=== PATIENT | female | born 1985 | race Caucasian/White ===

== ENCOUNTER 2016-07-24 06:17 | Inpatient (IN) | payer OTHER ==
[2016-07-24] MEDS ORDERED: Acetaminophen TAB* 325 MG PO ONE ×2 (06:39→12:52)
[2016-07-24] MEDS ORDERED: Oxytocin in LR* 20 UNITS/1,000 ML BAG IVPB SCH ×2 (07:00→16:12)
[2016-07-24 08:02] LABS: Hematocrit 32 % (35-47); Hemoglobin 10.8 g/dl (12.0-16.0); Mean Corpuscular HGB Conc 34 g/dl (31-36); Mean Corpuscular Hemoglobin 29 pg (27-31); Mean Corpuscular Volume 85 fL (80-97); Mean Platelet Volume 9 um3 (7.4-10.4); Red Blood Count 3.72 10^6/ul (4.0-5.4); Red Cell Distribution Width 15 % (10.5-15); White Blood Count 11.7 10^3/ul (3.5-10.8)
[2016-07-24] MEDS ORDERED: Nalbuphine* 20 MG/ML 1 ML VIAL IV PRN (08:13)
[2016-07-24] MEDS ORDERED: Promethazine INJ(RESTRICTED)* 25 MG/ML 1 ML VIAL IV ONE (08:13)
[2016-07-24] MEDS ORDERED: Nalbuphine* 20 MG/ML 1 ML VIAL ONE (08:18)
[2016-07-24] MEDS ORDERED: Lidocaine 1% MPF* 2 ML VIAL ONE (12:03)
[2016-07-24] MEDS ORDERED: Acetaminophen TAB* 325 MG ONE (12:52)
[2016-07-24] MEDS ORDERED: Dibucaine 1% 28.35 GM TUBE PR PRN (16:08)
[2016-07-24] MEDS ORDERED: Acetaminophen TAB* 325 MG PO PRN (16:08)
[2016-07-24] MEDS ORDERED: Witch Hazel PAD* JAR TOPICAL PRN (16:08)
[2016-07-24] MEDS ORDERED: Glycerin ADULT SUPP PR PRN (16:08)
[2016-07-24] MEDS ORDERED: Calcium Carbonate CHEW TAB* 500 MG (TUMS) PO PRN (16:18)
[2016-07-24] MEDS ORDERED: RHO D Immune Globulin (HUMAN)* 300 MCG = 1,500 I.U. INJ IM ONE (16:21)
[2016-07-24] MEDS: Ibuprofen TAB* 600 MG PO PRN ×2 (17:00→23:10)
[2016-07-24] MEDS: Docusate CAP* 100 MG PO SCH (19:48)
[2016-07-24] MEDS: oxyCODONE/Acetamin 5/325 MG* TAB PO PRN (19:48)
[2016-07-25] MEDS: oxyCODONE/Acetamin 5/325 MG* TAB PO PRN (02:04)
[2016-07-25] MEDS ORDERED: Levothyroxine TAB* 100 MCG TAB PO SCH (06:00)
[2016-07-25] MEDS: Ibuprofen TAB* 600 MG PO PRN (06:03)
[2016-07-25 08:09] VITALS: BP 139/79
[2016-07-25] MEDS ORDERED: Ferrous Gluconate TAB* 324 MG TAB PO SCH (09:00)
[2016-07-25] MEDS: Docusate CAP* 100 MG PO SCH (09:04)
[2016-07-25 09:27] LABS: Hematocrit 31 % (35-47); Mean Corpuscular HGB Conc 33 g/dl (31-36); Mean Corpuscular Hemoglobin 28 pg (27-31); Mean Corpuscular Volume 87 fL (80-97); Mean Platelet Volume 9 um3 (7.4-10.4); Red Blood Count 3.51 10^6/ul (4.0-5.4); Red Cell Distribution Width 15 % (10.5-15)
== END 2016-07-25 17:05 | disposition home or self-care (01) | DRG 775 ==
LOC: MCHOBOUT 06:17 → MCHOB 06:40
PROVIDERS: ADMIT Midwife; ATTEND Midwife
PROC: 3E033VJ Introduction of Other Hormone into Peripheral Vein, Percutaneous Approach (ICD-10-PCS; principal; 2016-07-24)
PROC: 10E0XZZ Delivery of Products of Conception, External Approach (ICD-10-PCS; 2016-07-24)
PROC: 4A1HXCZ Monitoring of Products of Conception, Cardiac Rate, External Approach (ICD-10-PCS; 2016-07-24)
PROC: 0HQ9XZZ Repair Perineum Skin, External Approach (ICD-10-PCS; 2016-07-24)
DX: O99.284 Endocrine, nutritional and metabolic diseases complicating childbirth (principal); O99.344 Other mental disorders complicating childbirth; E89.0 Postprocedural hypothyroidism; O70.0 First degree perineal laceration during delivery; F41.9 Anxiety disorder, unspecified; Z3A.38 38 weeks gestation of pregnancy; Z37.0 Single live birth; O09.813 Supervision of pregnancy resulting from assisted reproductive technology, third trimester; Z85.850 Personal history of malignant neoplasm of thyroid
CPT/HCPCS: 36415; 85025; 85027; 86850; 86900; 86901; A9270-GY; J2300

== ENCOUNTER 2019-07-26 11:10 | Emergency (ER) | payer OTHER ==
--- NOTE | 2019-07-26 11:12 | UC ---
Lower Extremity/Ankle HPI - HPI Summary HPI Summary: 34 yo female presents with LEFT ankle/foot injury. She tells me that on 07/19 she was doing an Easter egg abel with her children at home and stepped down off a ~6inch rock and inverted her left ankle. Had immediate pain and was unable to weight bear. Swelling began shortly after. Since that time she has been using crutches, DALILA wrap, gel splint, and taking tylenol with little relief. She tried to weight bear yesterday and had severe pain to ankle. States she has sprained this ankle many times in the past, but never fx'd that she knows of. Denies numbness or tingling. - History of Current Complaint Stated Complaint: ANKLE INJURY Time Seen by Provider: 07/26/19 11:11 Hx Obtained From: Patient Onset/Duration: Sudden Onset Severity Initially: Severe Severity Currently: Severe Pain Intensity: 8 Pain Scale Used: 0-10 Numeric Aggravating Factor(s): Standing, Ambulation Alleviating Factor(s): Rest, Elevation Able to Bear Weight: No - Allergies/Home Medications Allergies/Adverse Reactions: Allergies Allergy/AdvReac Type Severity Reaction Status Date / Time No Known Allergies Allergy Verified 07/26/19 11:22 Home Medications: Home Medications Acetaminophen [Tylenol Extra Strength] 1,500 mg PO PRN 07/26/19 [History] Citalopram TAB* [Celexa TAB*] 07/26/19 [History] HYDROcodone/ACETAMIN 5-325 MG* [[place]rose 5-325 TAB*] 1 tab PO Q8H PRN #12 tab MDD 3 07/26/19 [Rx] Levothyroxine TAB* [Synthroid 100 MCG TAB*] 200 mcg PO DAILY@0600 07/26/19 [ History Confirmed 07/26/19] buPROPion TAB* [Wellbutrin TAB*] 07/26/19 [History] PMH/Surg Hx/FS Hx/Imm Hx Endocrine History: Hypothyroidism - Surgical History Surgical History: Yes Surgery Procedure, Year, and Place: THYROIDECTOMY 2004 - Family History Known Family History: Positive: None - Social History Lives: With Family Alcohol Use: Rare Substance Use Type: None Smoking Status (MU): Never Smoked Tobacco Have You Smoked in the Last Year: No - Immunization History Most Recent Influenza Vaccination: unsure Most Recent Pneumonia Vaccination: never Review of Systems All Other Systems Reviewed And Are Negative: No Constitutional: Positive: Negative Skin: Positive: Negative Respiratory: Positive: Negative Cardiovascular: Positive: Negative Neurovascular: Positive: Negative Musculoskeletal: Positive: Other: - Ankle injury Neurological/Mental Status: Positive: Negative Psychological: Positive: Negative Physical Exam - Summary Physical Exam Summary: GENERAL: NAD. WDWN. No pain distress. SKIN: No rashes, sores, lesions, or open wounds. CHEST: No accessory muscle use. Breathing comfortably and in no distress. CV: Pulses intact PT and DP. Cap refill <2seconds MSK: LEFT ANKLE: Moderate TTP about distal fibula. FROM, pain with inversion at fibula. Moderate edema about ankle joint with moderate ecchymosis about lateral distal fibula. Strength 5/5. Negative Nelson test. LEFT FOOT: Mild TTP at base 5th MT. Moves all toes. NEURO: Alert. Sensations intact and symmetric B/L LEs PSYCH: Age appropriate behavior. Triage Information Reviewed: Yes Vital Signs: Vital Signs: Temp Pulse Resp BP Pulse Ox 98.2 F 95 18 134/90 100 07/26/19 11:14 07/26/19 11:14 07/26/19 11:14 07/26/19 11:14 07/26/19 11:14 Vital Signs Reviewed: Yes Diagnostics - Radiology Ankle XR Radiology Interpretation Completed By: Radiologist Summary of Radiographic Findings: IMPRESSION: 1. Lateral soft tissue swelling with no fracture. 2. Moderate calcaneal enthesophyte as above. Foot XR Radiology Interpretation Completed By: Radiologist Summary of Radiographic Findings: IMPRESSION: 1. PROBABLE OS PERONEUM ALONG THE LATERAL CORTEX OF THE CUBOID. CORRELATE WITH POINT TENDERNESS. IF PAIN PERSISTS , REPEAT IMAGING IS PENDING. 2. MODERATELY SIZED CALCANEAL ENTHESOPHYTE. Lower Extremity Course/Dx - Course Course Of Treatment: XR as above. Pt placed in a CAM boot and advised to continue using her crutches to be non- weight bearing. Recommend f/u with Orthopedics early next week. Will rx for norco given her continued pain and trouble sleeping due to pain. Continue RICE therapy. iSTOP Reference #: [id number] - Differential Dx/Diagnosis Provider Diagnosis: Os peroneum syndrome of left foot, Ankle sprain Discharge ED - Sign-Out/Discharge Documenting (check all that apply): Patient Departure All imaging exams completed and their final reports reviewed: Yes - Discharge Plan Condition: Stable Disposition: HOME Prescriptions: HYDROcodone/ACETAMIN 5-325 MG* [[place]rose 5-325 TAB*] 1 tab PO Q8H PRN #12 tab MDD 3 PRN Reason: Pain - Severe Patient Education Materials: Ankle Sprain (ED) Referrals: Anabelle Lomeli MD [Primary Care Provider] - Pierre Berman MD [Medical Doctor] - As Soon As Possible Additional Instructions: If you develop a fever, shortness of breath, chest pain, new or worsening symptoms - please call your PCP or go to the ED immediately. 1) Rest, ice, and elevate your foot/ankle as much as possible 2) Use the CAM boot as much as possible 3) Continue to use the crutches to be non-weight bearing 4) I recommend that you call Orthopedics to schedule a recheck for next week Opioid-containing medications can cause drowsiness and sedation. You should not drive, operate machinery, or similar activities while taking this medication. Opioids can also cause a positive drug screen and can be habit-forming. You should follow the instructions exactly and not take any extra medication. Opioid medications should be stored in a secure manner to avoid diversion or theft. You should not drink alcohol while taking these medications - Billing Disposition and Condition Condition: STABLE Disposition: Home
[2019-07-26 11:22] VITALS: BP 134/90
== END 2019-07-26 12:17 | disposition home or self-care (01) ==
LOC: UCEAST 11:10
DX: M89.8X7 Other specified disorders of bone, ankle and foot (principal); S93.402A Sprain of unspecified ligament of left ankle, initial encounter; X50.1XXA Overexertion from prolonged static or awkward postures, initial encounter; Y93.89 Activity, other specified; Y92.008 Other place in unspecified non-institutional (private) residence as the place of occurrence of the external cause
CPT/HCPCS: 99213; G0463